=== PATIENT | female | born 1970 | race Caucasian/White ===

== ENCOUNTER 2018-09-04 07:06 | Day surgery (SDC) | payer BC ==
[~2018-09-04] VITALS: Ht 170.2 cm; Wt 56.2 kg
[2018-09-04] VITALS (7 sets, daily range): BP systolic 97–119; BP diastolic 56–69
[~2018-09-04 07:06] MED LIST: LEXAPRO5 MG ORAL; LR 1000ml 1,000 ML IVLG SCH; SINGULAIR10 MG ORAL; VALERIAN ROOT100 MG PO
[2018-09-04] MEDS ORDERED: D-HIST PO (07:36)
[2018-09-04] MEDS ORDERED: ANTRONEX PO (07:36)
[2018-09-04] MEDS ORDERED: Lidocaine 1% MPF 10mg/ml 5ml ONE (08:00)
[2018-09-04] MEDS ORDERED: Propofol 200mg/20ml IV ONE (08:00)
[2018-09-04] MEDS ORDERED: LR 1000ml ONE (08:00)
--- NOTE | 2018-09-04 08:17 | Short Stay Surgery H&P ---
History of Present Illness History of Present Illness Chief Complaint See typed H&P HPI Latricia Lucas is a 48 year old female who was admitted on for Screening Patient History Allergies: Coded Allergies: ERYTHROMYCIN BASE (Verified Allergy, Severe, 09/04/18) ABD PAIN, MODERATE NAUSEA AND VOMITING Medication History Scheduled Escitalopram Oxalate (Lexapro), 5 MG ORAL DAILY, (Reported) Montelukast Sodium* (Singulair*), 10 MG ORAL DAILY, (Reported) Valerian Root (Valerian Root), 500 MG PO DA, (Reported) [Antronex], 1 TAB PO BID, (Reported) [D-Hist], 1 CAP PO BID, (Reported) Physical Exam Vital Signs Last Vital Signs Date Time Temp Pulse Resp B/P (MAP) Pulse Ox O2 Delivery O2 Flow Rate FiO2 09/04/18 07:36 98.4 66 18 112/66 97 Room Air Labs Laboratory Tests Test 09/04/18 07:20 Urine HCG, Qualitative Negative (NEGATIVE) Plan Attestation Are the patient's medical conditions optimized for surgery? Dusty Mantilla MD Sep 04, 2018 08:17
--- NOTE | 2018-09-04 08:18 | Pre-Procedure Note/Attestation ---
Pre-Procedure Note/Attestation Complete Prior to Procedure Planned Procedure: not applicable Procedure Narrative: colonoscopy Indications for Procedure Pre-Operative Diagnosis: screening Attestation I attest that I discussed the nature of the procedure; its benefits; risks and complications; and alternatives (and the risks and benefits of such alternatives ), prior to the procedure, with the patient (or the patient's legal solar sales representative). I attest that, if there was a reasonable possibility of needing a blood transfusion, the patient (or the patient's legal solar sales representative) was given the [facility] standardized written summary, pursuant to the [place] Blood Safety Act ([place] Health and Safety Code # 1645, as amended). I attest that I re-evaluated the patient just prior to the surgery and that there has been no change in the patient's H&P, except as documented below: Dusty Mantilla MD Sep 04, 2018 08:18
--- NOTE | 2018-09-04 08:35 | Anethesia Preoperative Eval ---
Anesthesia Pre-op PMH/ROS General Date of Evaluation: Sep 04, 2018 Time of Evaluation: 08:11 Anesthesiologist: kwabena ASA Score: ASA 3 Mallampati Score Class I : Soft palate, uvula, fauces, pillars visible Class II: Soft palate, uvula, fauces visible Class III: Soft palate, base of uvula visible Class IV: Only hard plate visible Mallampati Classification: Class II Surgeon: marina Diagnosis: colon screening Surgical Procedure: colonoscopy Anesthesia History: none Social History: smoking - former smoker Family History: no anesthesia problems Allergies: Coded Allergies: ERYTHROMYCIN BASE (Verified Allergy, Severe, 09/04/18) ABD PAIN, MODERATE NAUSEA AND VOMITING Medications: see eMAR Patient NPO?: Yes Past Medical History Neurologic/Psychiatric: Reports: depression/anxiety Hematology/Immune: Reports: other - cancer Musculoskeletal/Integumentary: Reports: DDD Anesthesia Pre-op Phys. Exam Physician Exam Last Vital Signs Date Time Temp Pulse Resp B/P (MAP) Pulse Ox O2 Delivery O2 Flow Rate FiO2 09/04/18 07:36 98.4 66 18 112/66 97 Room Air Constitutional: NAD Neurologic: CN 2-12 intact Cardiovascular: RRR Respiratory: CTA Gastrointestinal: S/NT/ND Airway Exam Mallampati Score: Class II MO: full Neck: flexible TMD: 2fb ROM: full Teeth: intact Anesthesia Pre-op A/P Labs Labs Test 09/04/18 07:20 Urine HCG, Qualitative Negative (NEGATIVE) Urine Test Test 09/04/18 07:20 Urine HCG, Qualitative Negative (NEGATIVE) Risk Assessment & Plan Assessment: asa3 Plan: mac Status Change Before Surgery: No Pre-Antibiotics Drug: Ellen Vazquez MD Sep 04, 2018 08:35
[2018-09-04] MEDS ORDERED: LR 1000ml 1,000 ML IVLG SCH (08:36)
[2018-09-04] MEDS ORDERED: Midazolam 2mg/2ml Inj IVP PRN (08:45)
[2018-09-04] MEDS ORDERED: DiphenhydrAMINE 50mg/ml Inj IVP PRN (08:45)
[2018-09-04] MEDS ORDERED: fentaNYL 100 mcg/2 mL IV PRN (08:45)
[2018-09-04] MEDS ORDERED: Atropine Inj 1mg/10ml Syr IV PRN (08:45)
--- NOTE | 2018-09-04 09:06 | Endoscopy Procedure Note ---
Endoscopy Procedure Note General Indication for Procedure: screen Procedures Performed: colonoscopy Operative Findings/Diagnosis: polyp x 2 Specimen: yes Pt Tolerated Procedure Well: Yes Estimated Blood Loss: none Anesthesia Anesthesiologist: Brian Stinson Anesthesia: MAC Medications Medication Given: see anesthesia record Inserted Devices Implant(s) used?: No GI Core Measures 50 yrs or older w/o bx or poly: No 10yrs. F/U not recommended: No If not recommended, why?: Above average risk 10 yrs. F/U needed: No 18 years or older w/prev. colo: No <3yrs. since last colonoscopy: No Med reason:<3 yrs.: System Reason:<3 yrs.: Last colonoscopy >= to 3yrs: Yes Dusty Mantilla MD Sep 04, 2018 09:06
--- NOTE | 2018-09-04 09:08 | Brief Operative Note ---
Immediate Post Operative Note Operative Note Chief Complaint: screen Pre-op Diagnosis: screening Procedure: colon, SN, Bx Post-op Diagnosis: colon polyp x 2 Post-op Diagnosis: same as pre-op Surgeon: marina Anesthesiologist: Brian phillips Anesthesia: MAC Specimen: yes Complications: none Condition: stable Fluids: recorded Estimated Blood Loss: none Drains: none Implant(s) used?: No Dusty Mantilal MD Sep 04, 2018 09:08
--- NOTE | 2018-09-04 09:36 | Immediate Post-Op Evaluation ---
Immediate Post-Op Evalulation Immediate Post-Op Evalulation Procedure: colonoscopy w/bx Date of Evaluation: Sep 04, 2018 Time of Evaluation: 09:14 IV Fluids: 375ml lr Blood Products: none Estimated Blood Loss: negligible Blood Pressure Systolic: 98 Blood Pressure Diastolic: 56 Pulse Rate: 64 Respiratory Rate: 18 O2 Sat by Pulse Oximetry: 100 Temperature (Fahrenheit): 97.4 Pain Score (1-10): 0 Nausea: No Vomiting: No Complications none Patient Status: awake, reacts, patent Hydration Status: adequate Drug: Ellen Vazquez MD Sep 04, 2018 09:36
--- NOTE | 2018-09-04 09:38 | 48 Hour Post Anesthesia Eval ---
Post Anesthesia Evaluation Procedure: colonoscopy w/bx Date of Evaluation: Sep 04, 2018 Time of Evaluation: 09:18 Blood Pressure Systolic: 108 0: 66 Pulse Rate: 61 Respiratory Rate: 18 Temperature (Fahrenheit): 97.4 O2 Sat by Pulse Oximetry: 100 Airway: patent Nausea: No Vomiting: No Pain Intensity: 0 Hydration Status: adequate Cardiopulmonary Status: stable Mental Status/LOC: patient returned to baseline Post-Anesthesia Complications: none Follow-up care needed: N/A Ellen Moran MD Sep 04, 2018 09:38
--- NOTE | 2018-09-04 14:45 | Procedure Note ---
DATE OF PROCEDURE: 09/04/2018 PROCEDURE: Colonoscopy with biopsy and hot snare polypectomy. SURGEON: Dusty Mantilla M.D. ANESTHESIA: Please see the separate anesthesiologist notes for details. PRE-ENDOSCOPIC DIAGNOSIS: Screening colonoscopy. POST-ENDOSCOPIC DIAGNOSES: 1. There is subcentimeter polyp seen in the ascending colon, which was removed with a hot snare polypectomy. 2. Diminutive polyp in the splenic flexure removed with multiple biopsy forceps applications. DESCRIPTION OF PROCEDURE: The procedure, its risks, indications, alternatives, and possible complications including but not limited to bleeding, infection, perforation, , and anesthesia complications were explained to the patient and informed consent was obtained. The patient was then sedated in the left lateral decubitus position and a rectal exam was done. The colonoscope was then introduced in the rectum and advanced to 5 cm into the terminal ileum. The terminal ileum was normal. The colonoscope was then gradually withdrawn and the mucosa examined carefully. The polyps were fine as identified and listed above and removed as described. There were no complications. The colonoscope was removed. The patient was sent to recovery in good condition. COMPLICATIONS: None. RECOMMENDATIONS: 1. Follow up biopsy results. 2. Outpatient followup. 3. Repeat colonoscopy in 5 years. Thank you for asking me to participate in the care of this patient. Dusty Mantilla M.D. DR: Sarah JOB#: [id number] CC: Destinee Alexander M.D. ; FAX#: [phone]
== END 2018-09-04 10:05 | disposition home or self-care (01) ==
LOC: GAS 07:06
DX: Z12.11 Encounter for screening for malignant neoplasm of colon (principal); D12.2 Benign neoplasm of ascending colon; D12.3 Benign neoplasm of transverse colon; F32.9 Major depressive disorder, single episode, unspecified; F41.9 Anxiety disorder, unspecified; Z87.891 Personal history of nicotine dependence; Z88.1 Allergy status to other antibiotic agents
CPT/HCPCS: 45380; 45385; 81025; J2704; 94003; 94150